=== PATIENT | male | born 1960 | race Caucasian/White ===

== ENCOUNTER 2023-07-15 05:02 | Emergency (ER) | payer BC ==
--- OUTSIDE RECORDS SUMMARY | 2023-07-15 05:05 | XMS REPORT | Continuity of Care Document ---
Author Name Unknown Address [address] [place] [address] [facility] Address [address] [place] [address] [place] [id number] Care Team Providers Care Train Gateman Name Role Phone Unavailable Unavailable Unavailable Encounters Start Date/Time End Date/Time Encounter Type Admission Type Attending Clinicians Care Facility Care Department Encounter ID Source 2023-07-09 10:56:01 [facility] [id number] [facility]
--- NOTE | 2023-07-15 05:51 | ER ---
Nurse's Notes [facility] Name: Abran Khan Age: 63 yrs Sex: Male : 1960 Arrival Date: 07/15/2023 Time: 05:02 Bed 7 Private MD: Diagnosis: Unilateral inguinal hernia, without obstruction or gangrene;Bilateral reducible inguinal hernias Presentation: 07/15 05:23 Chief complaint: Patient states: HAS BEEN TOLD HE HAS BILAT HERNIAS. STATES HE HAS BEEN jj7 HAVING THIS LOWER ABD PAIN SINCE MAY. TAKES PAIN MEDS FOR IT. STATES HE FORGOT TO TAKE HIS MEDS FOR PAIN BEFORE BED AND TOOK THEM WHEN HE WOKE UP. TIRED OF TAKING PAIN MEDS AND WANTS TO GET THIS TAKEN CARE OF. Coronavirus screen: At this time, the client does not indicate any symptoms associated with coronavirus-19. Ebola Screen: No symptoms or risks identified at this time. Initial Sepsis Screen: Does the patient meet any 2 criteria? No. Patient's initial sepsis screen is negative. Does the patient have a suspected source of infection? No. Patient's initial sepsis screen is negative. Risk Assessment: Do you want to hurt yourself or someone else? Patient reports no desire to harm self or others. Onset of symptoms was May 2023. 05:23 Method Of Arrival: Ambulatory [facility] 05:23 Acuity: VENKAT 4 jj7 Triage Assessment: 05:30 General: Appears in no apparent distress. comfortable, Behavior is calm, cooperative, jj7 appropriate for age. Pain: Complains of pain in right lower quadrant and left lower quadrant Pain currently is 5 out of 10 on a pain scale. Historical: - Allergies: 05:29 No Known Allergies; jj7 - PMHx: 05:29 Diabetes mellitus; Hypertensive disorder; HIGH CHOLESTEROL; jj7 - PSHx: 05:30 None; jj7 - Immunization history:: Adult Immunizations up to date. - Social history:: Smoking status: Patient denies any tobacco usage or history of. Patient/guardian denies using alcohol, street drugs. - Family history:: not pertinent. Screenin:32 [facility] ED Fall Risk Assessment (Adult) History of falling in the last 3 months, jj7 including since admission No falls in past 3 months (0 pts) Confusion or Disorientation No (0 pts) Intoxicated or Sedated No (0 pts) Impaired Gait No (0 pts) Mobility Assist Device Used No (0 pt) Altered Elimination No (0 pt) Score/Fall Risk Level 0 - 2 = Low Risk Oriented to surroundings, Maintained a safe environment, Educated pt \T\ family on fall prevention, incl call for assistance when getting out of bed. Abuse screen: Denies threats or abuse. Nutritional screening: No deficits noted. Tuberculosis screening: No symptoms or risk factors identified. Assessment: 06:23 Reassessment: see triage assessment. jj7 Vital Signs: 05:23 BP 158 / 85; Pulse 70; Resp 20; Temp 97.3; Pulse Ox 100% on R/A; Weight 90.72 kg; jj7 Height 5 ft. 4 in. ; Pain 4/10; 06:24 BP 143 / 76; Pulse 61; Resp 18; Pulse Ox 98% ; jj7 05:23 Body Mass Index 34.33 (90.72 kg, 162.56 cm) jj7 05:23 Pain Scale: Adult j7 ED Course: 05:10 Patient arrived in ED. jj6 05:29 Triage completed. jj7 05:30 Arm band placed on right wrist. Patient placed in an exam room, on a stretcher. jj7 05:32 Patient has correct armband on for positive identification. Call light in reach. Side jj7 rails up X 1. 05:35 Dayne Paulson MD is Attending Physician. sp4 05:49 Eugene Bojorquez MD is Referral Physician. sp4 06:23 No provider procedures requiring assistance completed. Patient did not have IV access j7 during this emergency room visit. Administered Medications: No medications were administered Medication: 06:23 VIS not applicable for this client. jj7 Outcome: 05:50 Discharge ordered by . sp4 06:23 Discharged to home ambulatory, jj7 06:23 Condition: good 06:23 Discharge instructions given to patient, Instructed on discharge instructions, follow up and referral plans. medication usage, Demonstrated understanding of instructions, follow-up care, medications, 06:24 Patient left the ED. jj7 Signatures: Nilda Santos jj6 Tripp Merritt RN RN j7 Potepalov, Dayne, MD MD sp4
--- NOTE | 2023-07-15 05:51 | EDPHYS ---
Physician Documentation [facility] Name: Abran Khan Age: 63 yrs Sex: Male : 1960 Arrival Date: 07/15/2023 Time: 05:02 Bed 7 Private MD: ED Physician Dayne Paulson HPI: 07/15 05:35 This 63 yrs old Male presents to ER via Ambulatory with complaints of Hernia sp4 Pain. 06:00 63-year-old male with history diabetes hypertension presents with bilateral groin pain sp4 consistent with his inguinal hernias. Patient states pain intensified last night on awakening. Is here for evaluation. . Historical: - Allergies: 05:29 No Known Allergies; jj7 - PMHx: 05:29 Diabetes mellitus; Hypertensive disorder; HIGH CHOLESTEROL; jj7 - PSHx: 05:30 None; jj7 - Immunization history:: Adult Immunizations up to date. - Social history:: Smoking status: Patient denies any tobacco usage or history of. Patient/guardian denies using alcohol, street drugs. - Family history:: not pertinent. ROS: 06:00 Constitutional: Negative for fever, chills, and weight loss, Abdomen/GI: Negative for sp4 abdominal pain, nausea, vomiting, diarrhea, and constipation, positive for bilateral inguinal pain 06:00 All other systems are negative, Exam: 06:00 Constitutional: This is a well developed, well nourished patient who is awake, alert, sp4 and in no acute distress. Head/Face: Normocephalic, atraumatic. Eyes: Pupils equal round and reactive to light, extra-ocular motions intact. Lids and lashes normal. Conjunctiva and sclera are not injected. Cornea within normal limits. Periorbital areas with no swelling, redness, or edema. ENT: Nares patent. No nasal discharge, no septal abnormalities noted. Tympanic membranes are normal and external auditory canals are clear. Oropharynx with no redness, swelling, or masses, exudates, or evidence of obstruction, uvula midline. Mucous membranes moist. Neck: Trachea midline, no thyromegaly or masses palpated, and no cervical lymphadenopathy. Supple, full range of motion without nuchal rigidity, or vertebral point tenderness. Chest/axilla: Normal chest wall appearance and motion. Nontender with no deformity. No lesions are appreciated. Cardiovascular: Regular rate and rhythm with a normal S1 and S2. No gallops, murmurs, or rubs. Normal PMI, no JVD. No pulse deficits. Respiratory: Lungs have equal breath sounds bilaterally, clear to auscultation and percussion. No rales, rhonchi or wheezes noted. No increased work of breathing, no retractions or nasal flaring. Abdomen/GI: Soft, non-tender, with normal bowel sounds. No distension or tympany. No guarding or rebound. No evidence of tenderness throughout. Back: No spinal tenderness. No costovertebral tenderness. Male : Normal genitalia with no discharge or lesions. Normal uncircumcised male, there is bilateral reducible inguinal hernia on exam. Skin: Warm, dry with normal turgor. Normal color with no rashes, no lesions, and no evidence of cellulitis. MS/ Extremity: Pulses equal, no cyanosis. Neurovascular intact. Full, normal range of motion. Neuro: Awake and alert, GCS 15, oriented to person, place, time, and situation. Cranial nerves II-XII grossly intact. Motor strength 5/5 in all extremities. Sensory grossly intact. Psych: Awake, alert, with orientation to person, place and time. Behavior, mood, and affect are within normal limits Vital Signs: 05:23 BP 158 / 85; Pulse 70; Resp 20; Temp 97.3; Pulse Ox 100% on R/A; Weight 90.72 kg; jj7 Height 5 ft. 4 in. ; Pain 4/10; 06:24 BP 143 / 76; Pulse 61; Resp 18; Pulse Ox 98% ; jj7 05:23 Body Mass Index 34.33 (90.72 kg, 162.56 cm) j7 05:23 Pain Scale: Adult j7 MDM: 05:36 Patient medically screened. sp4 06:00 Differential Diagnosis altered mental status, sepsis, flu. Data reviewed: vital signs, sp4 nurses notes, old medical records. ED course: Patient has bilateral reducible inguinal hernia without signs of obstruction or incarceration. CT is not indicated. Patient advised to follow-up with general surgeon Dr. Bojorquez tomorrow morning.. 12 05:36 Order name: IV Saline Lock sp4 07/15 05:36 Order name: Labs collected and sent sp4 Administered Medications: No medications were administered Disposition Summary: 07/15/23 05:50 Discharge Ordered Notes: Location: Home sp4 Problem: new sp4 Symptoms: have improved sp4 Condition: Stable sp4 Diagnosis - Unilateral inguinal hernia, without obstruction or gangrene sp4 - Bilateral reducible inguinal hernias sp4 Followup: sp4 - With: Eugene Bojorquez MD - When: 1 - 2 days - Reason: Recheck today's complaints Discharge Instructions: - Discharge Summary Sheet sp4 - Inguinal Hernia, Adult, [id number] sp4 Forms: - Patient Portal Instructions sp4 Signatures: Dispatcher [employer] Tripp Monroe RN RN jj7 Dayne Paulson MD MD sp4
[2023-07-15 06:30] VITALS: BP 143/76; TEMP 97.3; O2SAT 98
== END 2023-07-15 06:24 | disposition home or self-care (01) ==
LOC: ER 05:02
DX: K40.20 Bilateral inguinal hernia, without obstruction or gangrene, not specified as recurrent (principal)
CPT/HCPCS: 99282